=== PATIENT | female | born 1940 | race Caucasian/White ===

== ENCOUNTER 2023-02-19 10:17 | Outpatient (CLI) | payer MEDICARE, OTHER ==
[2023-02-19 12:34] LABS: Hematocrit 32.8 % (34.9-44.5); Hemoglobin 10.6 g/dL (12.0-15.5); Mean Corpuscular HGB CONC 32.3 g/dL (32.0-36.0); Mean Corpuscular Hemoglobin 29.6 pg (27.0-33.0); Mean Corpuscular Volume 91.6 fl (81.6-98.3); Mean Platelet Volume 9.9 fl (7.4-10.4); Platelet Count 262 10x3/uL (150-450); RBC Distribution Width 13.3 % (11.5-14.5); Red Blood Cell (RBC) Count 3.58 10x6/uL (3.90-5.03); White Blood Cell (WBC) Count 5.1 10x3/uL (3.5-10.5)
[2023-02-19 12:41] LABS: Anion Gap 14 mmol/L (10-20); BUN (Urea Nitrogen) 14 mg/dL (9.8-20.1); Calc. Creatinine Clearance 0 mL/min (70-130); Calcium 9.1 mg/dL (7.8-10.44); Carbon Dioxide 27 mmol/L (23-31); Chloride 99 mmol/L (98-107); Estimated GFR 89; Glucose 93 mg/dL (83-110); Potassium 4.2 mmol/L (3.5-5.1); Sodium 136 mmol/L (136-145)
[2023-02-19 12:46] LABS: INR-International Normal Ratio 1.1; PTT 30.2 sec (22.0-33.0); Prothrombin Time 11.3 sec (9.5-12.1)
== END 2023-02-19 10:18 | disposition home or self-care (01) ==
LOC: CSHLAB 10:17
PROVIDERS: ATTEND Specialist
DX: Z01.818 Encounter for other preprocedural examination (principal)
CPT/HCPCS: 80048; 85027; 85610; 85730; 93005; 93010

== ENCOUNTER 2023-02-20 09:35 | Inpatient (IN) | payer MEDICARE, OTHER ==
[2023-02-20] MEDS ORDERED: Aspirin 325 MG TAB ONE (10:30)
[2023-02-20] MEDS ORDERED: Ascorbic Acid 500 mg Chewable Tablet ONE (10:30)
[2023-02-20] MEDS ORDERED: Clopidogrel Bisulfate 75 MG TAB ONE (10:51)
[2023-02-20] MEDS ORDERED: Lidocaine 1% (PF) 30 ML VIAL ONE (10:56)
[2023-02-20] MEDS ORDERED: PHENYLEPHRINE-NS 100 MCG/ML 10 ML SYRINGE ONE (10:56)
[2023-02-20] MEDS ORDERED: Heparin 10,000 UNITS/ 10 ML VIAL ONE (10:56)
[2023-02-20] MEDS ORDERED: Phenylephrine 40 MG/NS 250 ML 250 ML ONE (11:08)
[2023-02-20] MEDS ORDERED: fentaNYL 50 mcg/mL 1 mL Vial ONE ×2 (11:15→14:21)
[2023-02-20] MEDS ORDERED: Atropine Sulfate 1 mg/1 ml Vial ONE (11:15)
[2023-02-20] MEDS ORDERED: Midazolam HCl 2 mg/2 ml Vial ONE ×3 (11:16→14:56)
[2023-02-20] MEDS ORDERED: Clopidogrel Bisulfate 75 MG TAB PO SCH (13:15)
[2023-02-20] MEDS ORDERED: Mag-Al 1200 mg/1200 mg/30 ML UDCUP PO PRN (13:50)
[2023-02-20] MEDS ORDERED: Sodium Chloride 0.9% 1,000 ML IV SCH (14:00)
[2023-02-20] MEDS ORDERED: Iopamidol 300 61% 100 ML VIAL FS ONE (14:05)
[2023-02-20 15:45] VITALS: BMI 20.3
[2023-02-20] MEDS: Acetaminophen 325 MG TAB PO PRN (19:07)
[2023-02-20] MEDS: Simvastatin 10 MG TAB PO SCH (20:52)
[2023-02-20] MEDS: Latanoprost 0.005% Ophth Soln 2.5 ml Bottle EA EYE SCH (20:52)
[2023-02-20] MEDS: OLANZapine 2.5 MG TAB PO SCH (20:52)
[2023-02-21] MEDS: Acetaminophen 325 MG TAB PO PRN ×3 (00:47→15:21)
[2023-02-21] MEDS ORDERED: HYDROcodone/Acetaminophen 5/325 mg Tablet PO SCH (02:15)
[2023-02-21 04:06] LABS: #Eosinphils 0.1 10x3/uL (0.0-0.5); #Monocytes 0.5 10x3/uL (0.0-1.1); %Eosinophils 2.9 % (0.0-6.0); %Lymphocytes 11.7 % (18.0-47.0); %Monocytes 12.7 % (0.0-10.0); %Neutrophils 71.2 % (40.0-75.0); Hematocrit 28.3 % (34.9-44.5); Hemoglobin 9.2 g/dL (12.0-15.5); Mean Corpuscular HGB CONC 32.5 g/dL (32.0-36.0); Mean Corpuscular Hemoglobin 30.1 pg (27.0-33.0); Mean Corpuscular Volume 92.5 fl (81.6-98.3); Mean Platelet Volume 10.2 fl (7.4-10.4); Platelet Count 179 10x3/uL (150-450); RBC Distribution Width 13.5 % (11.5-14.5); Red Blood Cell (RBC) Count 3.06 10x6/uL (3.90-5.03); White Blood Cell (WBC) Count 4.2 10x3/uL (3.5-10.5)
[2023-02-21 04:15] LABS: ALT (SGPT) 9 U/L (8-55); AST (SGOT) 27 U/L (5-34); Albumin 2.8 g/dL (3.4-4.8); Alkaline Phosphatase 62 U/L (40-110); Anion Gap 11 mmol/L (10-20); BUN (Urea Nitrogen) 11 mg/dL (9.8-20.1); Bilirubin, Total 0.8 mg/dL (0.2-1.2); Calc. Creatinine Clearance 73 mL/min (70-130); Calcium 8.3 mg/dL (7.8-10.44); Carbon Dioxide 24 mmol/L (23-31); Chloride 104 mmol/L (98-107); Estimated GFR 91; Globulin 2.3 g/dL (2.4-3.5); Glucose 78 mg/dL (83-110); Potassium 4.2 mmol/L (3.5-5.1); Protein, Total 5.1 g/dL (5.8-8.1); Sodium 135 mmol/L (136-145)
[2023-02-21] MEDS: Levothyroxine Sodium 88 MCG TAB PO SCH (06:29)
[2023-02-21] MEDS: Clopidogrel Bisulfate 75 MG TAB PO SCH (08:10)
[2023-02-21] MEDS: Digoxin 0.125 MG TAB PO SCH (08:10)
[2023-02-21] MEDS: Escitalopram Oxalate 10 mg Tablet PO SCH (08:10)
[2023-02-21] MEDS: Furosemide 20 MG TAB PO SCH (08:10)
[2023-02-21] MEDS: Cholecalciferol 1,000 UNITS (25 MCG) TAB PO SCH (08:10)
[2023-02-21] MEDS: Potassium Chloride 20 MEQ TAB PO SCH (08:10)
[2023-02-21] MEDS ORDERED: EPOETIN ALFA-EPBX (ESRD) 3,000 UNITS/ML VIAL SC SCH (16:30)
[2023-02-21] MEDS: Simvastatin 10 MG TAB PO SCH (22:23)
[2023-02-21] MEDS: Latanoprost 0.005% Ophth Soln 2.5 ml Bottle EA EYE SCH (22:24)
[2023-02-21] MEDS: OLANZapine 2.5 MG TAB PO SCH (22:24)
[2023-02-22 04:06] LABS: Iron 28 ug/dL (50-170); Iron Binding Capacity, Total 276 mcg/dL (265-497)
[2023-02-22] MEDS: Levothyroxine Sodium 88 MCG TAB PO SCH (06:33)
[2023-02-22] MEDS: Acetaminophen 325 MG TAB PO PRN ×3 (07:04→22:48)
[2023-02-22] MEDS: Cholecalciferol 1,000 UNITS (25 MCG) TAB PO SCH (08:59)
[2023-02-22] MEDS: Clopidogrel Bisulfate 75 MG TAB PO SCH (08:59)
[2023-02-22] MEDS: Escitalopram Oxalate 10 mg Tablet PO SCH (08:59)
[2023-02-22] MEDS: Potassium Chloride 20 MEQ TAB PO SCH (08:59)
[2023-02-22] MEDS: Furosemide 20 MG TAB PO SCH (08:59)
[2023-02-22] MEDS: Digoxin 0.125 MG TAB PO SCH (08:59)
[2023-02-22 10:21] LABS: Hematocrit 30.2 % (34.9-44.5); Hemoglobin 9.9 g/dL (12.0-15.5); Mean Corpuscular HGB CONC 32.8 g/dL (32.0-36.0); Mean Corpuscular Hemoglobin 29.8 pg (27.0-33.0); Mean Platelet Volume 10.2 fl (7.4-10.4); Platelet Count 218 10x3/uL (150-450); RBC Distribution Width 13.3 % (11.5-14.5); Red Blood Cell (RBC) Count 3.32 10x6/uL (3.90-5.03); White Blood Cell (WBC) Count 6.9 10x3/uL (3.5-10.5)
[2023-02-22] MEDS ORDERED: HYDROcodone/Acetaminophen 5/325 mg Tablet PO SCH (15:00)
[2023-02-22] MEDS: Simvastatin 10 MG TAB PO SCH (21:10)
[2023-02-22] MEDS: OLANZapine 2.5 MG TAB PO SCH (21:10)
[2023-02-22] MEDS: Latanoprost 0.005% Ophth Soln 2.5 ml Bottle EA EYE SCH (21:22)
[2023-02-23] MEDS ORDERED: HYDROcodone/Acetaminophen 5/325 mg Tablet PO SCH ×3 (00:30→21:00)
[2023-02-23] MEDS: Levothyroxine Sodium 88 MCG TAB PO SCH (05:28)
[2023-02-23] MEDS: Digoxin 0.125 MG TAB PO SCH (08:59)
[2023-02-23] MEDS: Cholecalciferol 1,000 UNITS (25 MCG) TAB PO SCH (08:59)
[2023-02-23] MEDS: Potassium Chloride 20 MEQ TAB PO SCH (08:59)
[2023-02-23] MEDS: Clopidogrel Bisulfate 75 MG TAB PO SCH (09:01)
[2023-02-23] MEDS: Furosemide 20 MG TAB PO SCH (09:01)
[2023-02-23] MEDS: Escitalopram Oxalate 10 mg Tablet PO SCH (09:01)
[2023-02-23] MEDS ORDERED: Bupivacaine 0.5% 10 ML VIAL FS SCH (16:30)
[2023-02-23] MEDS ORDERED: Dexamethasone 4 mg/ml Vial SLOW IVP SCH (17:00)
[2023-02-23] MEDS: OLANZapine 2.5 MG TAB PO SCH (20:48)
[2023-02-23] MEDS: Simvastatin 10 MG TAB PO SCH (20:48)
[2023-02-23] MEDS: Latanoprost 0.005% Ophth Soln 2.5 ml Bottle EA EYE SCH (20:48)
[2023-02-24 05:29] LABS: #Monocytes 0.3 10x3/uL (0.0-1.1); #Neutrophils 2.6 10x3/uL (1.5-8.4); %Lymphocytes 10.6 % (18.0-47.0); %Monocytes 8.2 % (0.0-10.0); %Neutrophils 80.3 % (40.0-75.0); Hematocrit 32.3 % (34.9-44.5); Hemoglobin 10.8 g/dL (12.0-15.5); Mean Corpuscular HGB CONC 33.4 g/dL (32.0-36.0); Mean Corpuscular Hemoglobin 29.5 pg (27.0-33.0); Mean Corpuscular Volume 88.3 fl (81.6-98.3); Mean Platelet Volume 10.3 fl (7.4-10.4); Platelet Count 217 10x3/uL (150-450); RBC Distribution Width 13.2 % (11.5-14.5); Red Blood Cell (RBC) Count 3.66 10x6/uL (3.90-5.03); White Blood Cell (WBC) Count 3.3 10x3/uL (3.5-10.5)
[2023-02-24 05:45] LABS: Anion Gap 13 mmol/L (10-20); BUN (Urea Nitrogen) 9 mg/dL (9.8-20.1); Calc. Creatinine Clearance 74 mL/min (70-130); Calcium 8.5 mg/dL (7.8-10.44); Carbon Dioxide 26 mmol/L (23-31); Chloride 98 mmol/L (98-107); Estimated GFR 92; Glucose 156 mg/dL (83-110); Potassium 3.8 mmol/L (3.5-5.1); Sodium 133 mmol/L (136-145)
[2023-02-24] MEDS: Levothyroxine Sodium 88 MCG TAB PO SCH (06:06)
[2023-02-24] MEDS: Digoxin 0.125 MG TAB PO SCH (10:16)
[2023-02-24] MEDS: Furosemide 20 MG TAB PO SCH (10:16)
[2023-02-24] MEDS: Escitalopram Oxalate 10 mg Tablet PO SCH (10:16)
[2023-02-24] MEDS: Cholecalciferol 1,000 UNITS (25 MCG) TAB PO SCH (10:17)
[2023-02-24] MEDS: Clopidogrel Bisulfate 75 MG TAB PO SCH (10:17)
[2023-02-24] MEDS: Potassium Chloride 20 MEQ TAB PO SCH (10:17)
[2023-02-24] MEDS: Milk Of Magnesia 30 ML UDCUP PO PRN (10:18)
[2023-02-24] MEDS: Acetaminophen 325 MG TAB PO PRN (15:43)
[2023-02-24] MEDS: Latanoprost 0.005% Ophth Soln 2.5 ml Bottle EA EYE SCH (21:25)
[2023-02-24] MEDS: Simvastatin 10 MG TAB PO SCH (21:26)
[2023-02-24] MEDS: OLANZapine 2.5 MG TAB PO SCH (21:26)
[2023-02-25] MEDS: Acetaminophen 325 MG TAB PO PRN (01:30)
[2023-02-25] MEDS: Levothyroxine Sodium 88 MCG TAB PO SCH (06:02)
[2023-02-25] MEDS: Cholecalciferol 1,000 UNITS (25 MCG) TAB PO SCH (10:18)
[2023-02-25] MEDS: Escitalopram Oxalate 10 mg Tablet PO SCH (10:18)
[2023-02-25] MEDS: Furosemide 20 MG TAB PO SCH (10:18)
[2023-02-25] MEDS: Clopidogrel Bisulfate 75 MG TAB PO SCH (10:19)
[2023-02-25] MEDS: Digoxin 0.125 MG TAB PO SCH (10:19)
[2023-02-25] MEDS: Potassium Chloride 20 MEQ TAB PO SCH (10:19)
[2023-02-25] MEDS: Milk Of Magnesia 30 ML UDCUP PO PRN (14:14)
[2023-02-25] MEDS: Apixaban 2.5 MG TAB PO SCH (21:20)
[2023-02-25] MEDS: OLANZapine 2.5 MG TAB PO SCH (21:21)
[2023-02-25] MEDS: Simvastatin 10 MG TAB PO SCH (21:21)
[2023-02-25] MEDS: Latanoprost 0.005% Ophth Soln 2.5 ml Bottle EA EYE SCH (22:46)
[2023-02-25] MEDS: HYDROcodone/Acetaminophen 5/325 mg Tablet PO PRN (22:46)
[2023-02-25] MEDS: Lorazepam 0.5 MG TAB PO PRN (22:51)
[2023-02-26] MEDS: Levothyroxine Sodium 88 MCG TAB PO SCH (05:05)
[2023-02-26] MEDS: Potassium Chloride 20 MEQ TAB PO SCH (09:21)
[2023-02-26] MEDS: Clopidogrel Bisulfate 75 MG TAB PO SCH (09:22)
[2023-02-26] MEDS: Escitalopram Oxalate 10 mg Tablet PO SCH (09:22)
[2023-02-26] MEDS: Apixaban 2.5 MG TAB PO SCH ×2 (09:22→22:46)
[2023-02-26] MEDS: Cholecalciferol 1,000 UNITS (25 MCG) TAB PO SCH (09:22)
[2023-02-26] MEDS: Digoxin 0.125 MG TAB PO SCH (09:23)
[2023-02-26] MEDS: Furosemide 20 MG TAB PO SCH (09:23)
[2023-02-26] MEDS: Acetaminophen 325 MG TAB PO PRN (09:23)
[2023-02-26 11:21] LABS: #Basophils 0.1 10x3/uL (0.0-0.2); #Eosinphils 0.4 10x3/uL (0.0-0.5); #Monocytes 1.4 10x3/uL (0.0-1.1); #Neutrophils 5.3 10x3/uL (1.5-8.4); %Basophils 0.6 % (0.0-2.0); %Eosinophils 4.2 % (0.0-6.0); %Lymphocytes 14.2 % (18.0-47.0); %Monocytes 16.4 % (0.0-10.0); %Neutrophils 64.2 % (40.0-75.0); Hematocrit 38.4 % (34.9-44.5); Hemoglobin 12.4 g/dL (12.0-15.5); Mean Corpuscular HGB CONC 32.3 g/dL (32.0-36.0); Mean Corpuscular Volume 89.9 fl (81.6-98.3); Mean Platelet Volume 9.8 fl (7.4-10.4); Platelet Count 248 10x3/uL (150-450); RBC Distribution Width 13.6 % (11.5-14.5); Red Blood Cell (RBC) Count 4.27 10x6/uL (3.90-5.03); White Blood Cell (WBC) Count 8.3 10x3/uL (3.5-10.5)
[2023-02-26 12:02] LABS: Anion Gap 14 mmol/L (10-20); BUN (Urea Nitrogen) 13 mg/dL (9.8-20.1); Calc. Creatinine Clearance 65 mL/min (70-130); Calcium 8.9 mg/dL (7.8-10.44); Carbon Dioxide 25 mmol/L (23-31); Chloride 98 mmol/L (98-107); Estimated GFR 89; Glucose 72 mg/dL (83-110); Potassium 4.7 mmol/L (3.5-5.1); Sodium 132 mmol/L (136-145)
[2023-02-26] MEDS: Lorazepam 0.5 MG TAB PO PRN (22:46)
[2023-02-26] MEDS: OLANZapine 2.5 MG TAB PO SCH (22:47)
[2023-02-26] MEDS: Latanoprost 0.005% Ophth Soln 2.5 ml Bottle EA EYE SCH (22:47)
[2023-02-26] MEDS: Simvastatin 10 MG TAB PO SCH (22:47)
[2023-02-26] MEDS: HYDROcodone/Acetaminophen 5/325 mg Tablet PO PRN (22:49)
[2023-02-27] MEDS: Levothyroxine Sodium 88 MCG TAB PO SCH (07:11)
[2023-02-27] MEDS: Clopidogrel Bisulfate 75 MG TAB PO SCH (09:23)
[2023-02-27] MEDS: Escitalopram Oxalate 10 mg Tablet PO SCH (09:23)
[2023-02-27] MEDS: Digoxin 0.125 MG TAB PO SCH (09:23)
[2023-02-27] MEDS: Cholecalciferol 1,000 UNITS (25 MCG) TAB PO SCH (09:23)
[2023-02-27] MEDS: Potassium Chloride 20 MEQ TAB PO SCH (09:23)
[2023-02-27] MEDS: Apixaban 2.5 MG TAB PO SCH (09:23)
[2023-02-27] MEDS: Furosemide 20 MG TAB PO SCH (09:24)
[2023-02-27 11:56] VITALS: BP 133/60; TEMP 97.6
[2023-02-27] MEDS ORDERED: Epoetin (ESRD) 10,000 UNITS/ML VIAL IVP SCH (12:00)
[2023-02-27] MEDS ORDERED: EPOETIN ALFA-EPBX (ESRD) 10,000 UNITS/ML VIAL SC SCH (12:00)
== END 2023-02-27 14:43 | DRG 35 ==
LOC: CSHCCL 09:35 → CSHIMCU 15:25 → CSHTELE 02-21 18:24
PROVIDERS: ADMIT Specialist; ATTEND Specialist
PROC: 037L3DZ Dilation of Left Internal Carotid Artery with Intraluminal Device, Percutaneous Approach (ICD-10-PCS; principal; 2023-02-20)
PROC: B3101ZZ Fluoroscopy of Thoracic Aorta using Low Osmolar Contrast (ICD-10-PCS; 2023-02-20)
DX: I65.23 Occlusion and stenosis of bilateral carotid arteries (principal); I48.11 Longstanding persistent atrial fibrillation; I25.118 Atherosclerotic heart disease of native coronary artery with other forms of angina pectoris; I48.0 Paroxysmal atrial fibrillation; I35.0 Nonrheumatic aortic (valve) stenosis; E78.5 Hyperlipidemia, unspecified; I10 Essential (primary) hypertension; E03.9 Hypothyroidism, unspecified; M17.0 Bilateral primary osteoarthritis of knee; R32 Unspecified urinary incontinence; M25.461 Effusion, right knee; E78.2 Mixed hyperlipidemia; Z88.2 Allergy status to sulfonamides; Z88.8 Allergy status to other drugs, medicaments and biological substances; Z88.1 Allergy status to other antibiotic agents; Z90.49 Acquired absence of other specified parts of digestive tract; Z90.89 Acquired absence of other organs; Z90.710 Acquired absence of both cervix and uterus; Z98.890 Other specified postprocedural states; Z87.891 Personal history of nicotine dependence; Z86.16 Personal history of COVID-19; Z82.49 Family history of ischemic heart disease and other diseases of the circulatory system; Z83.3 Family history of diabetes mellitus
CPT/HCPCS: 36222; 36227; 36415; 37215; 80048; 80053; 82728; 83540; 83550; 85025; 85027; 85347; 85610; 85730; 93005; 93010; 99152; 99153; C1725; C1760; C1769; C1876; C1884; C1887; C1894; J0461; J1100; J1644; J2001; J2250; J3010; J3490; J7050; Q5105; Q9967

== ENCOUNTER 2023-08-20 02:15 | Inpatient (IN) | payer MEDICARE, OTHER ==
[2023-08-20 03:04] LABS: #Basophils 0.04 10x3/uL (0.0-0.2); #Eosinphils 0.18 10x3/uL (0.0-0.5); #Monocytes 0.97 10x3/uL (0.0-1.1); %Basophils 0.5 % (0.0-2.0); %Eosinophils 2.3 % (0.0-6.0); %Lymphocytes 10.2 % (18.0-47.0); %Monocytes 12.2 % (0.0-10.0); %Neutrophils 74.5 % (40.0-75.0); Hematocrit 35.6 % (34.9-44.5); Hemoglobin 12.1 g/dL (12.0-15.5); Mean Corpuscular Volume 88.3 fl (81.6-98.3); Mean Platelet Volume 10.5 fl (7.4-10.4); Platelet Count 201 10x3/uL (150-450); Red Blood Cell (RBC) Count 4.03 10x6/uL (3.90-5.03); White Blood Cell (WBC) Count 7.9 10x3/uL (3.5-10.5)
[2023-08-20] MEDS ORDERED: diphenhydrAMINE 50 MG/ML VIAL ONE (03:04)
[2023-08-20 03:22] LABS: Acetaminophen Less than 10 mcg/mL (10.0-30.0); Alcohol Less than 10.0 mg/dL (Less than 10); Salicylate Less than 8.0 mg/dL (15.0-30.0)
[2023-08-20 03:23] LABS: ALT (SGPT) 46 U/L (8-55); AST (SGOT) 79 U/L (5-34); Albumin 3.7 g/dL (3.4-4.8); Alkaline Phosphatase 79 U/L (40-110); Anion Gap 15 mmol/L (10-20); BUN (Urea Nitrogen) 19 mg/dL (9.8-20.1); Bilirubin, Total 1.1 mg/dL (0.2-1.2); CK (CPK) 1271 U/L (29-168); Calc. Creatinine Clearance 0 mL/min (70-130); Carbon Dioxide 23 mmol/L (23-31); Chloride 102 mmol/L (98-107); Estimated GFR 79; Globulin 2.5 g/dL (2.4-3.5); Glucose 94 mg/dL (83-110); Potassium 4.1 mmol/L (3.5-5.1); Protein, Total 6.2 g/dL (5.8-8.1); Sodium 136 mmol/L (136-145)
[2023-08-20] MEDS ORDERED: Aspirin Chewable 81 MG TAB ONE (03:38)
[2023-08-20 03:50] LABS: Bilirubin Neg (Negative); Blood, Urine Negative (Negative); Clarity Clear (Clear); Glucose, Urine (Dipstick) Normal (Negative); Ketone, Urine 5 mg/dL (Negative); Leukocyte Negative (Negative); Nitrite Negative (Negative); Protein, Urine (Dipstick) Negative (Neg-Trace); Specific Gravity, Urine 1.005 (1.005-1.030); Urobilinogen Normal mg/dL (Less than 2); pH, Urine 6.5 (5.0-9.0)
[2023-08-20] MEDS ORDERED: Acetaminophen 500 MG TAB ONE (03:50)
[2023-08-20 03:58] LABS: Bacteria/HPF 1+ HPF (None Seen); CAUTI Indications for Culture Alt mental st,lethar; RBC/HPF None Seen HPF (0-3); Squamous Epithelial None Seen HPF (0-3); WBC/HPF None Seen HPF (0-3)
[2023-08-20 03:59] LABS: Urine Culture Reflex No No
[2023-08-20 04:00] LABS: Amphetamine Not Detected (NotDetected); Barbiturates Screen Not Detected (NotDetected); Benzodiazepine Screen Not Detected (NotDetected); Cocaine Metabolite Screen Not Detected (NotDetected); Methadone Not Detected (NotDetected); Methamphetamine Not Detected (NotDetected); Opiate Screen Detected (NotDetected); Oxycodone Screen Not Detected (NotDetected); Phencyclidine (PCP) Not Detected (NotDetected); THC/Cannabinoid Screen Not Detected (NotDetected); Tricyclic Screen Not Detected (NotDetected)
[2023-08-20] MEDS ORDERED: Ondansetron PF 4 MG/2 ML Vial IVP PRN (04:20)
[2023-08-20] MEDS ORDERED: Calcium Carbonate 500 MG ChewTAB PO PRN (04:20)
[2023-08-20 05:53] VITALS: BMI 16.9
[2023-08-20] MEDS: Lorazepam 0.5 MG TAB PO SCH ×2 (06:10→09:10)
[2023-08-20] MEDS: Benztropine Mesylate 2 MG/2 ML VIAL IVP SCH (06:22)
[2023-08-20] MEDS: Morphine 2 MG/ML VIAL SLOW IVP PRN (06:22)
[2023-08-20] MEDS: Digoxin 0.125 MG TAB PO SCH (09:09)
[2023-08-20] MEDS: Apixaban 2.5 MG TAB PO SCH (09:09)
[2023-08-20] MEDS: Clopidogrel Bisulfate 75 MG TAB PO SCH (09:09)
[2023-08-20] MEDS: Pantoprazole DR 40 MG TAB PO SCH (09:09)
[2023-08-20] MEDS: Carvedilol 3.125 MG TAB PO SCH (09:10)
[2023-08-20 09:32] LABS: Troponin I 0.126 ng/mL (< 0.028)
[2023-08-20] MEDS: Lactated Ringer's 1,000 ML IV SCH (11:26)
[2023-08-20] MEDS: Benztropine 1 MG TAB PO SCH (12:06)
[2023-08-20 12:31] LABS: Troponin I 0.122 ng/mL (< 0.028)
[2023-08-20] MEDS: clonazePAM 0.5 MG TAB PO SCH (14:19)
[2023-08-20] MEDS: Carvedilol 6.25 MG TAB PO SCH (17:30)
[2023-08-20] MEDS: Levothyroxine Sodium 88 MCG TAB PO SCH (21:07)
[2023-08-20] MEDS: Latanoprost 0.005% Ophth Soln 2.5 ml Bottle EA EYE SCH (21:09)
[2023-08-21] MEDS: Acetaminophen 325 MG TAB PO PRN (03:00)
[2023-08-21 09:22] VITALS: BMI 16.9
[2023-08-21 11:13] LABS: Anion Gap 15 mmol/L (10-20); Carbon Dioxide 23 mmol/L (23-31); Chloride 104 mmol/L (98-107); Potassium 3.9 mmol/L (3.5-5.1); Sodium 138 mmol/L (136-145)
[2023-08-21 11:14] LABS: ALT (SGPT) 42 U/L (8-55); AST (SGOT) 64 U/L (5-34); Albumin 3.1 g/dL (3.4-4.8); Alkaline Phosphatase 66 U/L (40-110); BUN (Urea Nitrogen) 14 mg/dL (9.8-20.1); Bilirubin, Total 1.3 mg/dL (0.2-1.2); CK (CPK) 798 U/L (29-168); Calc. Creatinine Clearance 59 mL/min (70-130); Calcium 8.6 mg/dL (7.6-10.4); Estimated GFR 89; Globulin 2.4 g/dL (2.4-3.5); Glucose 77 mg/dL (83-110); Protein, Total 5.5 g/dL (5.8-8.1)
[2023-08-21 11:15] LABS: Magnesium 1.6 mg/dL (1.6-2.6)
[2023-08-21] MEDS: Losartan 50 MG TAB PO SCH (12:42)
[2023-08-21] MEDS: Benztropine 1 MG TAB PO SCH (23:30)
[2023-08-22] MEDS: Losartan 25 MG TAB PO SCH (08:43)
[2023-08-22 09:24] LABS: ALT (SGPT) 44 U/L (8-55); AST (SGOT) 58 U/L (5-34); Albumin 3.7 g/dL (3.4-4.8); Alkaline Phosphatase 81 U/L (40-110); Anion Gap 17 mmol/L (10-20); BUN (Urea Nitrogen) 13 mg/dL (9.8-20.1); Bilirubin, Total 1.7 mg/dL (0.2-1.2); Calc. Creatinine Clearance 55 mL/min (70-130); Calcium 9.3 mg/dL (7.8-10.44); Carbon Dioxide 24 mmol/L (23-31); Chloride 99 mmol/L (98-107); Estimated GFR 88; Glucose 137 mg/dL (83-110); Potassium 3.6 mmol/L (3.5-5.1); Protein, Total 6.7 g/dL (5.8-8.1); Sodium 136 mmol/L (136-145)
[2023-08-22 09:36] LABS: #Basophils 0.03 10x3/uL (0.0-0.2); #Eosinphils 0.17 10x3/uL (0.0-0.5); #Monocytes 0.72 10x3/uL (0.0-1.1); #Neutrophils 6.26 10x3/uL (1.5-8.4); %Basophils 0.4 % (0.0-2.0); %Eosinophils 2.2 % (0.0-6.0); %Lymphocytes 6.5 % (18.0-47.0); %Monocytes 9.3 % (0.0-10.0); %Neutrophils 81.2 % (40.0-75.0); Hematocrit 39.2 % (34.9-44.5); Hemoglobin 13.7 g/dL (12.0-15.5); Mean Corpuscular HGB CONC 34.9 g/dL (32.0-36.0); Mean Corpuscular Hemoglobin 30.9 pg (27.0-33.0); Mean Corpuscular Volume 88.3 fl (81.6-98.3); Mean Platelet Volume 10.6 fl (7.4-10.4); Platelet Count 222 10x3/uL (150-450); RBC Distribution Width 14.9 % (11.5-14.5); Red Blood Cell (RBC) Count 4.44 10x6/uL (3.90-5.03); White Blood Cell (WBC) Count 7.7 10x3/uL (3.5-10.5)
[2023-08-22] MEDS: Senokot S 8.6-50 MG TAB PO PRN (11:30)
[2023-08-22] MEDS: Magnesium 2 GM/50 ML(in water) 2 GM in Premix 1 BAG IVPB SCH (11:30)
[2023-08-22] MEDS: Benztropine 1 MG TAB PO SCH (11:30)
[2023-08-22] MEDS: Potassium Chloride 20 MEQ TAB PO SCH (11:31)
[2023-08-22] MEDS: clonazePAM 0.5 MG TAB PO SCH (22:03)
[2023-08-23 04:49] LABS: Anion Gap 15 mmol/L (10-20); BUN (Urea Nitrogen) 16 mg/dL (9.8-20.1); Calc. Creatinine Clearance 56 mL/min (70-130); Carbon Dioxide 26 mmol/L (23-31); Chloride 101 mmol/L (98-107); Estimated GFR 88; Glucose 89 mg/dL (83-110); Potassium 3.9 mmol/L (3.5-5.1); Sodium 138 mmol/L (136-145)
[2023-08-23 05:10] LABS: #Basophils 0.04 10x3/uL (0.0-0.2); #Eosinphils 0.17 10x3/uL (0.0-0.5); #Monocytes 0.93 10x3/uL (0.0-1.1); #Neutrophils 4.66 10x3/uL (1.5-8.4); %Basophils 0.6 % (0.0-2.0); %Eosinophils 2.6 % (0.0-6.0); %Monocytes 14.2 % (0.0-10.0); %Neutrophils 71.3 % (40.0-75.0); Hematocrit 36.9 % (34.9-44.5); Hemoglobin 12.5 g/dL (12.0-15.5); Mean Corpuscular HGB CONC 33.9 g/dL (32.0-36.0); Mean Corpuscular Volume 88.5 fl (81.6-98.3); Mean Platelet Volume 10.8 fl (7.4-10.4); Platelet Count 239 10x3/uL (150-450); RBC Distribution Width 15.3 % (11.5-14.5); Red Blood Cell (RBC) Count 4.17 10x6/uL (3.90-5.03); White Blood Cell (WBC) Count 6.5 10x3/uL (3.5-10.5)
[2023-08-23 11:21] LABS: Magnesium 1.9 mg/dL (1.6-2.6)
[2023-08-23] MEDS: Atorvastatin Calcium 40 MG TAB PO SCH (20:11)
[2023-08-23] MEDS: tiZANidine HCl 4 MG TAB PO SCH (20:11)
[2023-08-23] MEDS: Losartan 25 MG TAB PO SCH (20:12)
[2023-08-24 04:11] LABS: #Basophils 0.03 10x3/uL (0.0-0.2); #Eosinphils 0.22 10x3/uL (0.0-0.5); #Monocytes 1.07 10x3/uL (0.0-1.1); #Neutrophils 4.58 10x3/uL (1.5-8.4); %Basophils 0.4 % (0.0-2.0); %Eosinophils 3.3 % (0.0-6.0); %Lymphocytes 11.8 % (18.0-47.0); %Monocytes 15.9 % (0.0-10.0); %Neutrophils 68.3 % (40.0-75.0); Hematocrit 36.2 % (34.9-44.5); Hemoglobin 12.6 g/dL (12.0-15.5); Mean Corpuscular HGB CONC 34.8 g/dL (32.0-36.0); Mean Corpuscular Hemoglobin 30.9 pg (27.0-33.0); Mean Corpuscular Volume 88.7 fl (81.6-98.3); Mean Platelet Volume 10.8 fl (7.4-10.4); Platelet Count 228 10x3/uL (150-450); RBC Distribution Width 15.5 % (11.5-14.5); Red Blood Cell (RBC) Count 4.08 10x6/uL (3.90-5.03); White Blood Cell (WBC) Count 6.7 10x3/uL (3.5-10.5)
[2023-08-24 04:24] LABS: Anion Gap 14 mmol/L (10-20); BUN (Urea Nitrogen) 23 mg/dL (9.8-20.1); Calc. Creatinine Clearance 54 mL/min (70-130); Calcium 8.8 mg/dL (7.8-10.44); Carbon Dioxide 26 mmol/L (23-31); Chloride 100 mmol/L (98-107); Estimated GFR 88; Glucose 95 mg/dL (83-110); Potassium 3.8 mmol/L (3.5-5.1); Sodium 136 mmol/L (136-145)
[2023-08-24] MEDS: HYDROcodone/Acetaminophen 5/325 mg Tablet PO SCH ×2 (11:55→21:26)
[2023-08-24] MEDS: Lactated Ringer's 1,000 ML IV SCH (12:01)
[2023-08-24] MEDS ORDERED: HYDROcodone/Acetaminophen 5/325 mg Tablet PO SCH (21:00)
[2023-08-24] MEDS: QUEtiapine 25 MG TAB PO SCH (21:27)
[2023-08-25 04:55] LABS: #Basophils 0.05 10x3/uL (0.0-0.2); #Eosinphils 0.19 10x3/uL (0.0-0.5); #Monocytes 0.88 10x3/uL (0.0-1.1); #Neutrophils 4.22 10x3/uL (1.5-8.4); %Basophils 0.8 % (0.0-2.0); %Eosinophils 3.1 % (0.0-6.0); %Monocytes 14.4 % (0.0-10.0); %Neutrophils 69.4 % (40.0-75.0); Hematocrit 36.1 % (34.9-44.5); Hemoglobin 12.4 g/dL (12.0-15.5); Mean Corpuscular HGB CONC 34.3 g/dL (32.0-36.0); Mean Corpuscular Hemoglobin 30.8 pg (27.0-33.0); Mean Corpuscular Volume 89.8 fl (81.6-98.3); Mean Platelet Volume 10.6 fl (7.4-10.4); Platelet Count 206 10x3/uL (150-450); RBC Distribution Width 15.1 % (11.5-14.5); Red Blood Cell (RBC) Count 4.02 10x6/uL (3.90-5.03); White Blood Cell (WBC) Count 6.1 10x3/uL (3.5-10.5)
[2023-08-25 05:05] LABS: Anion Gap 14 mmol/L (10-20); BUN (Urea Nitrogen) 16 mg/dL (9.8-20.1); Calc. Creatinine Clearance 59 mL/min (70-130); Calcium 8.8 mg/dL (7.8-10.44); Carbon Dioxide 24 mmol/L (23-31); Chloride 102 mmol/L (98-107); Estimated GFR 89; Glucose 81 mg/dL (83-110); Potassium 4.1 mmol/L (3.5-5.1); Sodium 136 mmol/L (136-145)
[2023-08-25] MEDS ORDERED: HYDROcodone/Acetaminophen 5/325 mg Tablet PO SCH ×2 (12:30→12:37)
[2023-08-25] MEDS: Acetaminophen 500 MG TAB PO SCH (13:34)
[2023-08-25] MEDS: HYDROcodone/Acetaminophen 5/325 mg Tablet PO SCH ×2 (13:35→13:53)
[2023-08-26 05:32] LABS: #Basophils 0.05 10x3/uL (0.0-0.2); #Eosinphils 0.22 10x3/uL (0.0-0.5); #Monocytes 0.93 10x3/uL (0.0-1.1); #Neutrophils 3.17 10x3/uL (1.5-8.4); %Eosinophils 4.2 % (0.0-6.0); %Lymphocytes 16.3 % (18.0-47.0); %Monocytes 17.8 % (0.0-10.0); %Neutrophils 60.5 % (40.0-75.0); Hematocrit 34.7 % (34.9-44.5); Hemoglobin 11.7 g/dL (12.0-15.5); Mean Corpuscular HGB CONC 33.7 g/dL (32.0-36.0); Mean Corpuscular Hemoglobin 30.2 pg (27.0-33.0); Mean Corpuscular Volume 89.7 fl (81.6-98.3); Mean Platelet Volume 10.3 fl (7.4-10.4); Platelet Count 208 10x3/uL (150-450); RBC Distribution Width 15.3 % (11.5-14.5); Red Blood Cell (RBC) Count 3.87 10x6/uL (3.90-5.03); White Blood Cell (WBC) Count 5.2 10x3/uL (3.5-10.5)
[2023-08-26 05:47] LABS: Anion Gap 13 mmol/L (10-20); BUN (Urea Nitrogen) 15 mg/dL (9.8-20.1); Calc. Creatinine Clearance 57 mL/min (70-130); Calcium 8.8 mg/dL (7.8-10.44); Carbon Dioxide 27 mmol/L (23-31); Chloride 99 mmol/L (98-107); Estimated GFR 89; Glucose 103 mg/dL (83-110); Potassium 3.7 mmol/L (3.5-5.1); Sodium 135 mmol/L (136-145)
[2023-08-26 16:39] VITALS: BP 126/62; TEMP 97.9
== END 2023-08-26 11:49 | disposition home or self-care (01) | DRG 91 ==
LOC: CSHERS 02:15 → CSHTELE 04:11 → OBSVTOIN 08-21 12:39
PROVIDERS: ADMIT Student in an Organized Health Care Education/Training Program; ATTEND Internal Medicine
PROC: 4A00X4Z Measurement of Central Nervous Electrical Activity, External Approach (ICD-10-PCS; principal; 2023-08-21)
DX: G24.02 Drug induced acute dystonia (principal); E43 Unspecified severe protein-calorie malnutrition; G93.41 Metabolic encephalopathy; I63.9 Cerebral infarction, unspecified; I21.A1 Myocardial infarction type 2; M62.82 Rhabdomyolysis; I48.11 Longstanding persistent atrial fibrillation; Z68.1 Body mass index [BMI] 19.9 or less, adult; G25.71 Drug induced akathisia; I48.0 Paroxysmal atrial fibrillation; I10 Essential (primary) hypertension; E03.9 Hypothyroidism, unspecified; I65.23 Occlusion and stenosis of bilateral carotid arteries; E78.2 Mixed hyperlipidemia; G89.29 Other chronic pain; I25.118 Atherosclerotic heart disease of native coronary artery with other forms of angina pectoris; Z95.2 Presence of prosthetic heart valve; Z95.9 Presence of cardiac and vascular implant and graft, unspecified; Z86.73 Personal history of transient ischemic attack (TIA), and cerebral infarction without residual deficits; Z86.16 Personal history of COVID-19; Z79.899 Other long term (current) drug therapy; Z79.891 Long term (current) use of opiate analgesic; Z79.02 Long term (current) use of antithrombotics/antiplatelets
CPT/HCPCS: 36415; 36416; 51701; 70450; 70551; 71045; 72125; 80048; 80053; 80162; 80306; 80307; 81001; 82140; 82550; 83735; 84443; 84484; 85025; 87040; 87086; 93005; 93010; 95816; 95819; 96374; 96375; J0515; J1200; J2272; J3475; J7120

== ENCOUNTER 2024-12-17 11:02 | Emergency (ER) | payer MEDICARE ==
[2024-12-17 11:44] LABS: #Basophils 0.05 10x3/uL (0.0-0.2); #Eosinophils 0.41 10x3/uL (0.0-0.5); #Monocytes 0.90 10x3/uL (0.0-1.1); #Neutrophils 5.45 10x3/uL (1.5-8.4); %Basophils 0.6 % (0.0-2.0); %Eosinophils 5.1 % (0.0-6.0); %Lymphocytes 14.5 % (18.0-47.0); %Monocytes 11.2 % (0.0-10.0); %Neutrophils 68.1 % (40.0-75.0); Hematocrit 34.4 % (34.9-44.5); Hemoglobin 11.6 g/dL (12.0-15.5); Mean Corpuscular Hemoglobin 30.8 pg (27.0-33.0); Mean Corpuscular Volume 91.2 fL (81.6-98.3); Platelet Count 206 10x3/uL (150-450); Red Blood Cell (RBC) Count 3.77 10x6/uL (3.90-5.03); White Blood Cell (WBC) Count 8.01 10x3/uL (3.5-10.5)
[2024-12-17 12:02] LABS: ALT (SGPT) 8 U/L (Less than 34); AST (SGOT) 18 U/L (11-34); Albumin 3.0 g/dL (3.1-4.5); Alkaline Phosphatase 116 U/L (40-110); Anion Gap 10 mmol/L (10-20); BUN (Urea Nitrogen) 11 mg/dL (9.8-20.1); Bilirubin, Total 0.8 mg/dL (0.3-1.2); Calc. Creatinine Clearance 0 mL/min (70-130); Calcium 8.5 mg/dL (7.8-10.44); Carbon Dioxide 29 mmol/L (23-31); Chloride 99 mmol/L (98-107); Globulin 2.7 g/dL (2.4-3.5); Glucose 83 mg/dL (83-110); Magnesium 1.9 mg/dL (1.6-2.6); Potassium 4.5 mmol/L (3.5-5.1); Sodium 133 mmol/L (136-145)
[2024-12-17 12:08] LABS: Troponin I 0.021 ng/mL (< 0.028)
[2024-12-17] MEDS ORDERED: Furosemide 40 MG (4 mL) VIAL ONE (15:14)
== END 2024-12-17 16:48 | disposition home or self-care (01) ==
LOC: CSHERS 11:02
DX: R06.02 Shortness of breath (principal); R79.89 Other specified abnormal findings of blood chemistry; I48.91 Unspecified atrial fibrillation; I10 Essential (primary) hypertension; Z86.73 Personal history of transient ischemic attack (TIA), and cerebral infarction without residual deficits; Z79.899 Other long term (current) drug therapy; Z79.01 Long term (current) use of anticoagulants
CPT/HCPCS: 70450; 71045; 80053; 83735; 83880; 84484; 85025; 87428; 93005; J1940; J2270; 36415; 96374; 96375

== ENCOUNTER 2024-12-19 10:06 | Inpatient (IN) | payer MEDICARE ==
[2024-12-19 10:56] LABS: #Basophils 0.04 10x3/uL (0.0-0.2); #Eosinophils 0.04 10x3/uL (0.0-0.5); #Monocytes 1.08 10x3/uL (0.0-1.1); #Neutrophils 13.90 10x3/uL (1.5-8.4); %Basophils 0.3 % (0.0-2.0); %Eosinophils 0.3 % (0.0-6.0); %Lymphocytes 5.2 % (18.0-47.0); %Monocytes 6.8 % (0.0-10.0); %Neutrophils 86.8 % (40.0-75.0); Hematocrit 35.9 % (34.9-44.5); Hemoglobin 11.7 g/dL (12.0-15.5); Mean Corpuscular Hemoglobin 29.8 pg (27.0-33.0); Mean Corpuscular Volume 91.3 fL (81.6-98.3); Platelet Count 200 10x3/uL (150-450); Red Blood Cell (RBC) Count 3.93 10x6/uL (3.90-5.03); White Blood Cell (WBC) Count 15.99 10x3/uL (3.5-10.5)
[2024-12-19 11:04] LABS: ALT (SGPT) 7 U/L (Less than 34); AST (SGOT) 17 U/L (11-34); Albumin 3.0 g/dL (3.1-4.5); Alkaline Phosphatase 117 U/L (40-110); Anion Gap 10 mmol/L (10-20); BUN (Urea Nitrogen) 20 mg/dL (9.8-20.1); Bilirubin, Total 1.2 mg/dL (0.3-1.2); Calc. Creatinine Clearance 0 mL/min (70-130); Calcium 8.3 mg/dL (7.8-10.44); Carbon Dioxide 27 mmol/L (23-31); Chloride 97 mmol/L (98-107); Globulin 2.7 g/dL (2.4-3.5); Glucose 165 mg/dL (83-110); Potassium 4.1 mmol/L (3.5-5.1); Sodium 130 mmol/L (136-145)
[2024-12-19 11:10] LABS: Troponin I 0.015 ng/mL (< 0.028)
[2024-12-19 11:13] LABS: ALV-art Gradient 37.005 mmHg (0-20); Actual Bicarbonate (HCO3a) 24.5 mEq/L (22-28); Analyzer IN Cardio CS ER; Base Excess (BEa) 1.0 mEq/L (-2.0 to +3.0); CO2 Tension 35.3 mmHg (35.0-45.0); Calcium, Ionized (arterial) 1.16 mmol/L (1.12-1.30); Critical Notified By: clumpkins rt; Hematocrit-ABG 39 % (36.0-47.0); Hemoglobin (Hb) 13.1 g/dL (12.0-16.0); O2 Tension (PaO2), arterial 68.6 mmHg (> 60.0); Potassium - ABG Lab 4.13 mmol/L (3.70-5.30); Puncture Site Right Radial artery; RapidComm Collect By clumpkins rt; pH, Arterial 7.459 (7.35-7.45)
[2024-12-19 13:09] LABS: Glucose, Urine (Dipstick) Normal (Negative); Leukocyte 500 (Negative); Protein, Urine (Dipstick) 500 mg/dl (Neg-Trace); Specific Gravity, Urine 1.020 (1.005-1.030)
[2024-12-19 13:17] LABS: Bacteria/HPF 4+ HPF (None Seen); CAUTI Indications for Culture Alt mental st,lethar; RBC/HPF Greater than 50 HPF (0-3); WBC/HPF Greater than 50 HPF (0-3)
[2024-12-19 13:18] LABS: Urine Culture Reflex Yes Yes
[2024-12-19 14:17] VITALS: BMI 22.4
[2024-12-19] MEDS: VANCOMYCIN 1.25 GM/250 ML BAG 1.25 GM in Premix 1 BAG IVPB SCH (14:43)
[2024-12-19] MEDS ORDERED: Electrolyte Replacement Protocol 1 EACH FS PRN (15:00)
[2024-12-19] MEDS ORDERED: Calcium Carbonate 500 MG ChewTAB PO PRN (15:05)
[2024-12-19] MEDS: PNEUMOC 20-VAL CONJ-DIP CRM/PF 0.5 ML SYRINGE IM ONE (15:17)
[2024-12-19] MEDS: Albumin 25% 25 GM (100 mL) BOT IVPB SCH (15:29)
[2024-12-19 16:36] LABS: Digoxin 1.19 ng/mL (0.8-2.0)
[2024-12-19 16:37] LABS: Magnesium 1.7 mg/dL (1.6-2.6)
[2024-12-19] MEDS: GUAIFENESIN SF SOLN 200 MG/10 ML UDCUP PO PRN (17:11)
[2024-12-19] MEDS: Magnesium 2 GM/50 ML(in water) 2 GM in Premix 1 BAG IVPB SCH (18:17)
[2024-12-19] MEDS: Acetaminophen 325 MG TAB PO PRN (21:03)
[2024-12-19] MEDS: Famotidine 20 MG TAB PO SCH (21:03)
[2024-12-19] MEDS: Senokot S 8.6-50 MG TAB PO SCH (21:03)
[2024-12-19] MEDS: Mupirocin 1 GM TUBE NASAL DECOLONIZATION NASAL SCH (21:03)
[2024-12-19] MEDS: Apixaban 2.5 MG TAB PO SCH (21:03)
[2024-12-20 03:01] LABS: #Basophils 0.04 10x3/uL (0.0-0.2); #Eosinophils 0.35 10x3/uL (0.0-0.5); #Monocytes 0.94 10x3/uL (0.0-1.1); #Neutrophils 11.72 10x3/uL (1.5-8.4); %Basophils 0.3 % (0.0-2.0); %Eosinophils 2.5 % (0.0-6.0); %Lymphocytes 6.6 % (18.0-47.0); %Monocytes 6.7 % (0.0-10.0); %Neutrophils 83.4 % (40.0-75.0); Hematocrit 33.1 % (34.9-44.5); Hemoglobin 11.0 g/dL (12.0-15.5); Mean Corpuscular Hemoglobin 30.7 pg (27.0-33.0); Mean Corpuscular Volume 92.5 fL (81.6-98.3); Platelet Count 159 10x3/uL (150-450); Red Blood Cell (RBC) Count 3.58 10x6/uL (3.90-5.03); White Blood Cell (WBC) Count 14.04 10x3/uL (3.5-10.5)
[2024-12-20 03:32] LABS: ALT (SGPT) 8 U/L (Less than 34); AST (SGOT) 23 U/L (11-34); Albumin 3.4 g/dL (3.1-4.5); Alkaline Phosphatase 93 U/L (40-110); Anion Gap 15 mmol/L (10-20); BUN (Urea Nitrogen) 12 mg/dL (9.8-20.1); Bilirubin, Total 1.4 mg/dL (0.3-1.2); Calc. Creatinine Clearance 86 mL/min (70-130); Calcium 8.5 mg/dL (7.8-10.44); Carbon Dioxide 23 mmol/L (23-31); Chloride 103 mmol/L (98-107); Globulin 2.5 g/dL (2.4-3.5); Glucose 108 mg/dL (83-110); Magnesium 1.8 mg/dL (1.6-2.6); Potassium 3.8 mmol/L (3.5-5.1); Sodium 137 mmol/L (136-145); Troponin I 0.018 ng/mL (< 0.028)
[2024-12-20] MEDS: AUSTEDO 6 MG PO SCH (08:22)
[2024-12-20] MEDS: Magnesium 2 GM/50 ML(in water) 2 GM in Premix 1 BAG IVPB SCH (08:27)
[2024-12-20] MEDS: clonazePAM 0.5 MG TAB PO PRN (08:50)
[2024-12-20] MEDS: Furosemide 20 MG (2 mL) VIAL SLOW IVP SCH (12:27)
[2024-12-20 19:50] VITALS: BMI 22.4
[2024-12-20] MEDS: Sertraline 25 MG TAB PO SCH (20:19)
[2024-12-21 03:39] LABS: Magnesium 1.8 mg/dL (1.6-2.6)
[2024-12-21] MEDS: Furosemide 20 MG (2 mL) VIAL SLOW IVP SCH (09:47)
[2024-12-21] MEDS: Magnesium 2 GM/50 ML(in water) 2 GM in Premix 1 BAG IVPB SCH (09:47)
[2024-12-21] MEDS: Digoxin 0.5 MG/2 ML AMP SLOW IVP SCH (11:45)
[2024-12-21] MEDS: Digoxin 0.5 MG/2 ML AMP ONE (11:48)
[2024-12-21] MEDS: Carvedilol 3.125 MG TAB PO SCH (16:34)
[2024-12-21] MEDS: Pregabalin 50 MG CAP PO SCH (21:12)
[2024-12-21] MEDS: Magnesium Oxide 400 MG TAB PO SCH (21:13)
[2024-12-22 04:30] LABS: ALT (SGPT) 8 U/L (Less than 34); AST (SGOT) 17 U/L (11-34); Albumin 3.5 g/dL (3.1-4.5); Alkaline Phosphatase 98 U/L (40-110); Anion Gap 13 mmol/L (10-20); BUN (Urea Nitrogen) 6 mg/dL (9.8-20.1); Bilirubin, Total 1.4 mg/dL (0.3-1.2); Calc. Creatinine Clearance 96 mL/min (70-130); Calcium 9.1 mg/dL (7.8-10.44); Carbon Dioxide 27 mmol/L (23-31); Chloride 101 mmol/L (98-107); Globulin 2.7 g/dL (2.4-3.5); Glucose 101 mg/dL (83-110); Magnesium 1.8 mg/dL (1.6-2.6); Potassium 3.1 mmol/L (3.5-5.1); Sodium 138 mmol/L (136-145)
[2024-12-22] MEDS ORDERED: Furosemide 20 MG (2 mL) VIAL SLOW IVP SCH (09:00)
[2024-12-22] MEDS: Magnesium 2 GM/50 ML(in water) 2 GM in Premix 1 BAG IVPB SCH (09:11)
[2024-12-22] MEDS: Carvedilol 3.125 MG TAB PO SCH (09:13)
[2024-12-22] MEDS: Furosemide 20 MG (2 mL) VIAL SLOW IVP SCH (11:43)
[2024-12-22 13:17] LABS: Potassium 3.6 mmol/L (3.5-5.1)
[2024-12-23 04:23] LABS: #Basophils 0.06 10x3/uL (0.0-0.2); #Eosinophils 0.40 10x3/uL (0.0-0.5); #Monocytes 1.59 10x3/uL (0.0-1.1); #Neutrophils 5.74 10x3/uL (1.5-8.4); %Basophils 0.7 % (0.0-2.0); %Eosinophils 4.5 % (0.0-6.0); %Lymphocytes 12.4 % (18.0-47.0); %Monocytes 17.8 % (0.0-10.0); %Neutrophils 64.2 % (40.0-75.0); Hematocrit 35.4 % (34.9-44.5); Hemoglobin 11.5 g/dL (12.0-15.5); Mean Corpuscular Hemoglobin 29.9 pg (27.0-33.0); Mean Corpuscular Volume 92.2 fL (81.6-98.3); Platelet Count 226 10x3/uL (150-450); Red Blood Cell (RBC) Count 3.84 10x6/uL (3.90-5.03); White Blood Cell (WBC) Count 8.94 10x3/uL (3.5-10.5)
[2024-12-23 04:43] LABS: Anion Gap 13 mmol/L (10-20); BUN (Urea Nitrogen) 13 mg/dL (9.8-20.1); Calc. Creatinine Clearance 96 mL/min (70-130); Calcium 9.2 mg/dL (7.8-10.44); Carbon Dioxide 28 mmol/L (23-31); Chloride 101 mmol/L (98-107); Glucose 100 mg/dL (83-110); Magnesium 1.9 mg/dL (1.6-2.6); Potassium 3.8 mmol/L (3.5-5.1); Sodium 138 mmol/L (136-145)
[2024-12-23] MEDS: Magnesium 2 GM/50 ML(in water) 2 GM in Premix 1 BAG IVPB SCH (08:25)
[2024-12-23] MEDS: Furosemide 20 MG (2 mL) VIAL SLOW IVP SCH (08:32)
[2024-12-24] MEDS: Mupirocin 1 GM TUBE NASAL DECOLONIZATION NASAL SCH (15:14)
[2024-12-25 16:44] VITALS: BP 96/55; TEMP 97.9
== END 2024-12-25 19:24 | DRG 871 ==
LOC: CSHERS 10:06 → CSHICU 12:15 → CSHTELE 12-22 19:48
PROVIDERS: ADMIT Internal Medicine; ATTEND Family Medicine
PROC: 3E03329 Introduction of Other Anti-infective into Peripheral Vein, Percutaneous Approach (ICD-10-PCS; principal; 2024-12-19)
PROC: 30233J1 Transfusion of Nonautologous Serum Albumin into Peripheral Vein, Percutaneous Approach (ICD-10-PCS; 2024-12-19)
PROC: 4A03351 Measurement of Arterial Flow, Peripheral, Percutaneous Approach (ICD-10-PCS; 2024-12-19)
DX: A41.50 Gram-negative sepsis, unspecified (principal); E43 Unspecified severe protein-calorie malnutrition; G93.41 Metabolic encephalopathy; R65.21 Severe sepsis with septic shock; I50.33 Acute on chronic diastolic (congestive) heart failure; N39.0 Urinary tract infection, site not specified; I48.20 Chronic atrial fibrillation, unspecified; B96.20 Unspecified Escherichia coli [E. coli] as the cause of diseases classified elsewhere; I25.10 Atherosclerotic heart disease of native coronary artery without angina pectoris; E03.9 Hypothyroidism, unspecified; E78.5 Hyperlipidemia, unspecified; I11.0 Hypertensive heart disease with heart failure; K59.00 Constipation, unspecified; E87.70 Fluid overload, unspecified; R53.81 Other malaise; F03.C0 Unspecified dementia, severe, without behavioral disturbance, psychotic disturbance, mood disturbance, and anxiety; Z88.8 Allergy status to other drugs, medicaments and biological substances; Z68.22 Body mass index [BMI] 22.0-22.9, adult; Z88.1 Allergy status to other antibiotic agents; Z88.5 Allergy status to narcotic agent; Z79.01 Long term (current) use of anticoagulants; Z79.899 Other long term (current) drug therapy; Z98.890 Other specified postprocedural states; Z90.49 Acquired absence of other specified parts of digestive tract; Z90.710 Acquired absence of both cervix and uterus; Z79.890 Hormone replacement therapy; R06.02 Shortness of breath; R79.89 Other specified abnormal findings of blood chemistry; I48.91 Unspecified atrial fibrillation; I10 Essential (primary) hypertension; Z86.73 Personal history of transient ischemic attack (TIA), and cerebral infarction without residual deficits
CPT/HCPCS: 36415; 36416; 36600; 70450; 71045; 74176; 80048; 80053; 80162; 81001; 82805; 83605; 83735; 83880; 84100; 84145; 84484; 85025; 86140; 87040; 87077; 87086; 87149; 87186; 87428; 93005; 93010; 94640; 94760; 94762; 96374; 96375; 97139; J1160; J1940; J2185; J2270; J2543; J3373; J3475; J7030; J7620; P9047